=== PATIENT | male | born 1975 | race Caucasian/White ===

== ENCOUNTER 2017-11-30 07:32 | Emergency (ER) | payer BC ==
[2017-11-30 07:36] VITALS: RESP 18
[2017-11-30] MEDS ORDERED: RX INFO: IV CONTRAST WAS GIVEN 1 EACH MISC MISCELLANE PRN (08:23)
[2017-11-30] MEDS ORDERED: diphenhydrAMINE 50 MG/ML 1 ML VIAL IVP STA (08:24)
[2017-11-30] MEDS ORDERED: SODIUM CHLORIDE 0.9% 1,000 ML IV STA (08:24)
[2017-11-30] MEDS ORDERED: METOCLOPRAMIDE 5 MG/ML 2 ML VIAL IVP STA (08:24)
[2017-11-30 09:31] LABS: Basophils % (A) 0 %; Eosinophils # (A) 0.2 k/uL (0-0.7); Eosinophils % (A) 3 %; HCT 46.3 % (39.0-53.0); HGB 16.2 gm/dL (13.0-17.5); Lymphocytes # (A) 1.4 k/uL (1.0-4.8); Lymphocytes % (A) 16 %; MCH 31.6 pg (25.0-35.0); MCV 90.1 fL (80.0-100.0); Mean Platelet Volume 6.7; Monocytes # (A) 0.4 k/uL (0-1.0); Monocytes % (A) 5 %; Neutrophils # (A) 6.3 k/uL (1.3-7.7); Neutrophils % (A) 75 %; Platelet Count 399 k/uL (150-450); RBC 5.14 m/uL (4.30-5.90); RDW 13.9 % (11.5-15.5); WBC 8.5 k/uL (3.8-10.6)
[2017-11-30 09:43] LABS: Anion Gap 11 mmol/L; Blood Urea Nitrogen 9 mg/dL (9-20); Calcium 9.4 mg/dL (8.4-10.2); Carbon Dioxide 24 mmol/L (22-30); Chloride 102 mmol/L (98-107); Glucose 91 mg/dL (74-99); Potassium 4.9 mmol/L (3.5-5.1); Sodium 137 mmol/L (137-145)
--- NOTE | 2017-11-30 09:52 | ED ---
General Adult HPI - General Chief complaint: Headache Stated complaint: Headache Time Seen by Provider: 11/30/17 08:14 Source: patient, RN notes reviewed Mode of arrival: ambulatory Limitations: no limitations - History of Present Illness Initial comments: Patient is a 42-year-old male presents to the emergency room today with a chief complaint of headache. He states that headache is located to the right side. He admits that his had similar headaches in the past. He states that they have been after his heart rate gets going. He states the first time it happened was pulled over by the police and he also had a headache afterwards. He admits that he's had post coital headaches in the past. He states that over the last time he had a headache similar to this. He does admit that he was having intercourse last night with afterwards this headache started. States located right side. Does admit to some sinus problems. States this does feel different from his typical sinus headache. Patient denies any other complaints or symptoms. Patient denies any recent fever, chills, shortness of breath, chest pain, back pain, abdominal pain, nausea or vomiting, numbness or tingling , dysuria or hematuria, constipation or diarrhea, visual changes, or any other complaints. - Related Data Home Medications Medication Instructions Recorded Confirmed Claritin Nasal [place] 2 sprays EA NOSTRIL DAILY 11/30/17 11/30/17 Previous Rx's Medication Instructions Recorded Amoxicillin/Potassium Clav 1 each PO Q12HR #20 tab 11/30/17 [Augmentin 875-125 Tablet] Fluticasone Propionate [Flonase 1 - 2 spray EA NOSTRIL DAILY 5 11/30/17 Allergy Relief] Days ml Naproxen [Naprosyn] 500 mg PO BID #20 tablet 11/30/17 Allergies Allergy/AdvReac Type Severity Reaction Status Date / Time No Known Allergies Allergy Verified 11/30/17 09:05 Review of Systems ROS Statement: Those systems with pertinent positive or pertinent negative responses have been documented in the HPI. ROS Other: All systems not noted in ROS Statement are negative. Past Medical History Past Medical History: No Reported History History of Any Multi-Drug Resistant Organisms: None Reported Past Surgical History: No Surgical Hx Reported Past Psychological History: No Psychological Hx Reported Smoking Status: Current every day smoker Past Alcohol Use History: Occasional Past Drug Use History: None Reported General Exam - General Exam Comments Initial Comments: General: The patient is awake and alert, in no distress, and does not appear acutely ill. Eye: Pupils are equal, round and reactive to light, extra-ocular movements are intact. No nystagmus. There is normal conjunctiva bilaterally. No signs of icterus. Ears, nose, mouth and throat: There are moist mucous membranes and no oral lesions. Tender palpation over the frontal sinus. Neck: The neck is supple, there is no tenderness or JVD. Cardiovascular: There is a regular rate and rhythm. No murmur, rub or gallop is appreciated. Respiratory: Lungs are clear to auscultation, respirations are non-labored, breath sounds are equal. No wheezes, stridor, rales, or rhonchi. Gastrointestinal: Soft, non-distended, non-tender abdomen without masses or organomegaly noted. There is no rebound or guarding present. No CVA tenderness. Musculoskeletal: Normal ROM, no tenderness. Strength 5/5. Sensation intact. Pulses equal bilaterally 2+. Neurological: A&O x 3. CN II-XII intact, There are no obvious motor or sensory deficits. Coordination appears grossly intact. Speech is normal. Skin: Skin is warm and dry and no rashes or lesions are noted. Psychiatric: Cooperative, appropriate mood & affect, normal judgment. Limitations: no limitations Course Vital Signs 11/30/17 11/30/17 07:34 10:34 Temperature 97 F L Pulse Rate 69 61 Respiratory 18 18 Rate Blood Pressure 136/86 125/63 O2 Sat by Pulse 99 98 Oximetry Medical Decision Making - Medical Decision Making Patient's CT of the head without contrast was negative for any mass, midline shift or hemorrhage. Show evidence for possible maxillary sinusitis. CT angiogram of head and neck shows no aneurysmal change of the lower cervical as well as. No significant stenosis. Suspect a left submandibular siaolith ( patient states she's had this in the past and did know about it). The mold cystic lesion in the right neck (which patient has noticed over the last few weeks is nontender) differential includes a brachial cleft cyst or ranula. Advised not emergent ENT follow-up. Patient will be placed on antibiotics cover for sinusitis infection. He is advised to ENT and also neurology. - Lab Data Result diagrams: 11/30/17 09:10 11/30/17 09:10 Lab Results 11/30/17 11/30/17 Range/Units 09:10 09:10 WBC 8.5 (3.8-10.6) k/uL RBC 5.14 (4.30-5.90) m/uL Hgb 16.2 (13.0-17.5) gm/dL Hct 46.3 (39.0-53.0) % MCV 90.1 (80.0-100.0) fL MCH 31.6 (25.0-35.0) pg MCHC 35.0 (31.0-37.0) g/dL RDW 13.9 (11.5-15.5) % Plt Count 399 (150-450) k/uL Neutrophils % 75 % Lymphocytes % 16 % Monocytes % 5 % Eosinophils % 3 % Basophils % 0 % Neutrophils # 6.3 (1.3-7.7) k/uL Lymphocytes # 1.4 (1.0-4.8) k/uL Monocytes # 0.4 (0-1.0) k/uL Eosinophils # 0.2 (0-0.7) k/uL Basophils # 0.0 (0-0.2) k/uL Sodium 137 (137-145) mmol/L Potassium 4.9 (3.5-5.1) mmol/L Chloride 102 (98-107) mmol/L Carbon Dioxide 24 (22-30) mmol/L Anion Gap 11 mmol/L BUN 9 (9-20) mg/dL Creatinine 0.62 L (0.66-1.25) mg/dL Est GFR (CKD-EPI)AfAm >90 (>60 ml/min/1.73 sqM) Est GFR (CKD-EPI)NonAf >90 (>60 ml/min/1.73 sqM) Glucose 91 (74-99) mg/dL Calcium 9.4 (8.4-10.2) mg/dL Disposition Clinical Impression: Sinusitis, Headache Narrative: Postcoital headache Disposition: HOME SELF-CARE Condition: Good Instructions: Acute Headache (ED) Additional Instructions: Please follow-up with ENT and neurology as discussed. Please use medication as prescribed and return to emergency room for any other concerns. Prescriptions: Amoxicillin/Potassium Clav [Augmentin 875-125 Tablet] 1 each PO Q12HR #20 tab Fluticasone Propionate [Flonase Allergy Relief] 1 - 2 spray EA NOSTRIL DAILY 5 Days ml Naproxen [Naprosyn] 500 mg PO BID #20 tablet Is patient prescribed a controlled substance at d/c from ED?: No Referrals: Sy Bullock MD [Primary Care Provider] - 1-2 days Shay Conde MD [STAFF PHYSICIAN] - 1-2 days Portia Rhodes MD [STAFF PHYSICIAN] - 1-2 days Time of Disposition: 11:38
--- NOTE | 2017-11-30 10:20 | CT ---
EXAMINATION TYPE: CT brain wo con DATE OF EXAM: 11/30/2017 COMPARISON: NONE HISTORY: Right sided headache with history of migraines CT DLP: 1189.3 mGycm. Automated Exposure Control for Dose Reduction was Utilized. TECHNIQUE: CT scan of the head is performed without contrast. FINDINGS: There is no acute intracranial hemorrhage, mass effect, or midline shift identified. The ventricles and sulci are within normal limits in size. Sofia-white matter differentiation is preserve d. There are air-fluid levels in visualized portion of both maxillary sinuses. There is 1.1 cm mucous retention cyst or polyp in the posterior right ethmoid sinus. Remainder paranasal sinuses are clear. The globes are intact bilaterally. IMPRESSION: No acute intracranial hemorrhage or midline shift is seen. Possible acute bilateral maxi llary sinusitis, correlate clinically.
--- NOTE | 2017-11-30 10:44 | CT ---
EXAMINATION TYPE: CT angio head neck DATE OF EXAM: 11/30/2017 HISTORY: Right sided headache and neck pain with history of migraines COMPARISON: NONE CT DLP: 287.2 mGycm. Automated Exposure Control for Dose Reduction was Utilized. TECHNIQUE: CTA scan of the head and neck are performed with IV Contrast, patient injected with 65 mL of Isovue 370, axial images are obtained, coronal and sagittal reformatted images are reviewed. Thre e-D reconstructed images are created on an independent workstation and reviewed. FINDINGS: Carotid/Vascular Structures: There is normal three-vessel origin from aortic arch without significant plaque or stenosis. No significant plaque or stenosis is seen in aortic arch and visualized portion of both subclavian arteries . Right common carotid artery shows normal origin from right brachiocepha lic artery. There is no significant plaque or stenosis in right common or internal carotid artery inc luding at level of carotid bulb. There is patent external carotid artery without significant plaque o r stenosis. The left common and internal carotid artery show no significant plaque or stenosis including at level of carotid bulb. There is patent left external carotid artery without significant plaque or stenosis . There is codominant vertebral basilar system. Vertebral arteries are patent to basilar junction. No s ignificant plaque or stenosis is seen. There are hypoplastic posterior communicating arteries noted b ilaterally. Images of the anterior circulation show no significant plaque or stenosis. There are small caliber le ft A1 segment with filling of left A2 segment due to patent anterior communicating artery. Other: Mild emphysematous change in lung apices is seen. There is thin-walled cystic lesion in the right neck measuring 3.2 x 1.9 cm axial image 39 posterior to the right submandibular gland anterior to carotid vessels. No suspicious enhancement or nodularity or septations are identified. There is suspected 1.0 cm sialolith inferior to left submandibular gland on axial image 39. IMPRESSION: 1. No significant stenosis in common or internal carotid arteries bilaterally. 2. No aneurysmal change at level of the [place]. 3. Suspect left submandibular sialolith along deep inferior margin. Thin-walled cystic lesion in righ t neck, differential includes brachial cleft cyst or ranula, other etiologies are not excluded. Advis e nonemergent ENT referral.
[2017-11-30] MEDS ORDERED: KETOROLAC 30 MG/ML 1 ML VIAL IVP STA (11:30)
[2017-11-30 11:57] VITALS: BP 117/74; PULSE 69; TEMP 97.8
== END 2017-11-30 11:55 | disposition home or self-care (01) ==
LOC: EC 07:32
DX: J32.1 Chronic frontal sinusitis (principal); F17.200 Nicotine dependence, unspecified, uncomplicated; Z79.899 Other long term (current) drug therapy
CPT/HCPCS: 99284; 96374; 96375 ×2; 96361; 36415; 80048; 85025; 70496; 70450; 70498; J1200; J2765; J1885; Q9967